=== PATIENT | female | born 1980 | race Caucasian/White ===

== ENCOUNTER 2024-11-02 09:43 | Emergency (ER) | payer BC ==
[~2024-11-02] VITALS: Ht 167.6 cm; Wt 131.7 kg
[2024-11-02] MEDS ORDERED: BUSPIRONE HCL30 MG (09:59)
[2024-11-02] MEDS ORDERED: XANAX2 MG (09:59)
[2024-11-02] MEDS ORDERED: PRAVASTATIN SOD40 MG (09:59)
[2024-11-02] MEDS ORDERED: LISINOPRIL10 MG PO (09:59)
[2024-11-02 12:35] VITALS: BP 144/62; PULSE 65; RESP 14; TEMP 98.1; O2SAT 100
[2024-11-02 12:38] LABS: ACETAMINOPHEN < 3.0 ug/mL (10-30); ETHANOL < 10.0 mg/dL (0.0-10.0); SALICYLATE < 5.0 mg/dL (0-30)
[2024-11-02 15:49] VITALS: PULSE 71; RESP 16; TEMP 98.4; O2SAT 99
== END 2024-11-02 16:20 | disposition home or self-care (01) ==
LOC: FSED 09:54 → ER 16:20
DX: R45.851 Suicidal ideations (principal); F41.9 Anxiety disorder, unspecified; F32.A Depression, unspecified; I10 Essential (primary) hypertension
CPT/HCPCS: 36415; 80320; 80329; 99284